=== PATIENT | male | born 1995 | race Hispanic/Latino ===

== ENCOUNTER 2021-11-09 16:34 | Emergency (ER) | payer BC, OTHER ==
[2021-11-09] MEDS ORDERED: Boostrix 0.5 ML (Tdap) VIAL ONE (18:41)
[2021-11-09] MEDS ORDERED: Ketorolac Tromethamine 30 MG/ML VIAL ONE (18:53)
== END 2021-11-09 19:29 | disposition home or self-care (01) ==
LOC: ERS 16:34
DX: S63.502A Unspecified sprain of left wrist, initial encounter (principal); S00.81XA Abrasion of other part of head, initial encounter; V23.4XXA Motorcycle driver injured in collision with car, pick-up truck or van in traffic accident, initial encounter; Z23 Encounter for immunization
CPT/HCPCS: 70450; 70486; 72125; 90471; 90715; 96374; G0390; J1885